=== PATIENT | female | born 1995 | race Caucasian/White ===

== ENCOUNTER 2017-02-02 13:28 | Emergency (ER) | payer BC ==
[2017-02-02 14:26] VITALS: BP 126/65
--- NOTE | 2017-02-02 14:49 | UC ---
Complaint Female HPI - HPI Summary HPI Summary: complaint of sores on her labia that she noticed approx 3 days ago feels painful stinging pain no discharge hurts to wip after she urinates feels fatigued denies abnormal vaginal discharge, dysuria, back pain, abdominal pain uses condom 50% of the time, multiple partners hasn't taken any medication for pain - History Of Current Complaint Chief Complaint: UCSTDScreening Stated Complaint: PERSONAL Time Seen by Provider: 02/02/17 14:43 Hx Obtained From: Patient Hx Last Menstrual Period: 01/25/17 - Allergies/Home Medications Allergies/Adverse Reactions: Allergies Allergy/AdvReac Type Severity Reaction Status Date / Time No Known Allergies Allergy Unverified 02/02/17 14:26 PMH/Surg Hx/FS Hx/Imm Hx Previously Healthy: Yes Endocrine History Of: Denies: Diabetes, Thyroid Disease Cardiovascular History Of: Denies: Cardiac Disorders, Hypertension Respiratory History Of: Denies: COPD, Asthma GI/ History Of: Denies: Ulcer Psychological History Of: Reports: Anxiety - HX OF NO PROBLEMS NOW - Surgical History Surgical History: None - Family History Known Family History: Negative: Cardiac Disease, Hypertension, Diabetes - Social History Occupation: Employed Full-time Alcohol Use: Rare Substance Use Type: None Smoking Status (MU): Light Every Day Tobacco Smoker Amount Used/How Often: 3 per day Cessation Counseling: Patient Advised to Stop - Immunization History Vaccination Up to Date: Yes Review of Systems Constitutional: Fatigue Skin: Other - genital lesions Eyes: Negative ENT: Negative Respiratory: Negative Cardiovascular: Negative Gastrointestinal: Negative Genitourinary: Negative Motor: Negative Neurovascular: Negative Musculoskeletal: Negative Neurological: Negative Psychological: Negative All Other Systems Reviewed And Are Negative: Yes Physical Exam Triage Information Reviewed: Yes Appearance: No Pain Distress, Well-Nourished Vital Signs: Initial Vital Signs Temp 98.5 F 02/02/17 14:21 Pulse 79 02/02/17 14:21 Resp 16 02/02/17 14:21 BP 126/65 02/02/17 14:21 Pulse Ox 100 02/02/17 14:21 Vital Signs Reviewed: Yes Eyes: Positive: Conjunctiva Clear ENT: Positive: Pharynx normal, TMs normal Neck: Positive: No Lymphadenopathy Respiratory: Positive: Lungs clear, Normal breath sounds, No respiratory distress Cardiovascular: Positive: RRR, No Murmur Abdomen Description: Positive: Nontender, No Organomegaly, Soft. Negative: CVA Tenderness (R), CVA Tenderness (L) Bowel Sounds: Positive: Present Musculoskeletal Exam: Normal Neurological Exam: Normal Psychological Exam: Normal Skin Exam: Normal - External genitalia with several erythemaous lesions no exudate- Vaginal vault is without discharge. Cervix is of normal color without lesion. The os is closed. There is no bleeding noted. Uterus is noted to be of normal size and nontender. No cervical motion tenderness is seen. No masses are palpated. The adnexa are without masses or tenderness. Complaint Female Dx - Course Course Of Treatment: exam completed. appears to be genital herpes. will start valtrex for suppression and give lidocaine TD for pain reduction. will do STD testing. discussed using condoms 100 % of the time - Differential Dx/Diagnosis Provider Diagnoses: genital herpes. STD testing Discharge - Discharge Plan Condition: Stable Disposition: HOME Prescriptions: Lidocaine 2% VISCOUS* 1 ml TRANSDERM QID #1 btl ValACYclovir (*) [Valtrex 1 GM(*)] 1 gm PO BID #14 tab Patient Education Materials: Safe Sex (ED), Genital Herpes Simplex (ED) Referrals: No Primary Care Phys,NOPCP [Primary Care Provider] - [facility] [Outside] Additional Instructions: Your blood pressure is pre-hypertensive reading. Please contact your primary care provider within 1 day -4 weeks for further evaluation. Start valtrex as directed , use lidocaine as needed Increase fluids and rest Take acetaminophen or ibuprofen for fever or pain Please review your discharge instructions. If your symptoms do not improve please call your primary care provider or return to urgent care
[2017-02-03 13:46] LABS: Syphilis Index < 0.1 Index
[2017-02-05 23:30] LABS: Herpes Simplex 1&2 IgM IFA Negative (Negative)
[2017-02-06 00:55] LABS: HS/VZ Source GENITAL LESION; Varicella Zoster Result Negative (Negative); Varicella Zoster Source GENITAL LESION
== END 2017-02-02 15:42 | disposition home or self-care (01) ==
LOC: UCEAST 13:28
DX: A60.00 Herpesviral infection of urogenital system, unspecified (principal); Z11.3 Encounter for screening for infections with a predominantly sexual mode of transmission; Z11.4 Encounter for screening for human immunodeficiency virus [HIV]; F17.210 Nicotine dependence, cigarettes, uncomplicated
CPT/HCPCS: 36415; 86592; 86694; 86703; 86803; 87491; 87529; 87591; 87798; 99212; G0463

== ENCOUNTER 2017-12-16 20:40 | Emergency (ER) | payer BC ==
[2017-12-16 21:27] VITALS: BP 124/56
[2017-12-16] MEDS ORDERED: Nitrofurantoin Macrocrystals* 50 MG CAP PO ONE (22:14)
[2017-12-16] MEDS ORDERED: Phenazopyridine TAB* 100 MG PO ONE (22:15)
--- NOTE | 2017-12-16 22:24 | UC ---
Complaint Female HPI - HPI Summary HPI Summary: 22 y/o female presents to the urgent care c/o burning and frequency on urination since yesterday. Pain is 8/10 w/ urination and she saw blood in her urine this morning. Pt has not taking anything to alleviate symptoms. Pt w/ Hx of Herpes. LMP:12/10/2017 w/ regular menstrual cycles. Pt denies lower back pain, pelvic pain, abdominal pain, fever, N/V/D. - History Of Current Complaint Chief Complaint: EDUrogenitalProblems Stated Complaint: BURNING URINATION Time Seen by Provider: 12/16/17 22:02 Hx Obtained From: Patient Hx Last Menstrual Period: 12/10/17 ?: No Onset/Duration: Gradual Onset, Lasting Days - 1 day, Still Present, Worse Since - today Timing: Constant, Lasting Days - 1 day Severity Initially: Mild Severity Currently: Moderate Pain Intensity: 5 Pain Scale Used: 0-10 Numeric Character: Burning Aggravating Factor(s): Urination Alleviating Factor(s): Nothing Associated Signs And Symptoms: Positive: Negative. Negative: Fever, Back Pain, Vaginal Bleeding/Discharge, Vaginal Discharge, Genital Swelling, Genital Blisters - Risk Factors Ectopic Risk Factor: Negative Ovarian Torsion Risk Factor: Negative - Allergies/Home Medications Allergies/Adverse Reactions: Allergies Allergy/AdvReac Type Severity Reaction Status Date / Time No Known Allergies Allergy Verified 12/16/17 21:28 PMH/Surg Hx/FS Hx/Imm Hx Previously Healthy: Yes Other Endocrine History: Herpes II - Surgical History Surgical History: None - Family History Known Family History: Positive: None - Pt denies FMHX Negative: Cardiac Disease, Hypertension, Diabetes - Social History Occupation: Student Lives: With Family Alcohol Use: Rare Substance Use Type: None Smoking Status (MU): Light Every Day Tobacco Smoker Amount Used/How Often: 3 per day - Immunization History Vaccination Up to Date: Yes Review of Systems Constitutional: Negative Skin: Negative Eyes: Negative ENT: Negative Respiratory: Negative Cardiovascular: Negative Gastrointestinal: Negative Genitourinary: Dysuria, Hematuria, Frequency, Urgency Motor: Negative Neurovascular: Negative Musculoskeletal: Negative Neurological: Negative Psychological: Negative Is Patient Immunocompromised?: No All Other Systems Reviewed And Are Negative: Yes Physical Exam Triage Information Reviewed: Yes Vital Signs: Initial Vital Signs Temp 98 F 12/16/17 21:19 Pulse 75 12/16/17 21:19 Resp 16 12/16/17 21:19 BP 124/56 12/16/17 21:19 Pulse Ox 100 12/16/17 21:19 - Additional Comments VITAL SIGNS: Reviewed. GENERAL: Patient is a well developed and nourished female who is sitting comfortable in the examining table. Patient is not in any acute respiratory distress. HEAD AND FACE: No signs of trauma. No ecchymosis, hematomas or skull depressions. No sinus tenderness. EYES: PERRLA, EOMI x 2, No injected conjunctiva, clear watery eyes, no nystagmus. No photophobia. EARS: Hearing grossly intact. Ear canals and tympanic membranes are within normal limits. MOUTH: pharynx with no erythema, no exudates,no palatal petechiae. no B/L tonsillar enlargement Uvula in midline. NECK: Supple, trachea is midline, no lymphadenopathy, no JVD, no carotid bruit, no c-spine tenderness, neck with full ROM. CHEST: Symmetric, no tenderness at palpation LUNGS: Clear to auscultation bilaterally. No wheezing or crackles. CVS: Regular rate and rhythm, S1 and S2 present, no murmurs or gallops appreciated. ABDOMEN: Soft, non-tender. No signs of distention. No rebound no guarding, and no masses palpated. Bowel sounds are normal. BACK:no scoliosis or lesions, non tender to palpation, No B/L CVA tenderness EXTREMITIES: FROM in all major joints, no edema, no cyanosis or clubbing. NEURO: Alert and oriented x 3. No acute neurological deficits. Speech is normal and follows commands. SKIN: Dry and warm Complaint Female Dx - Course Course Of Treatment: 22 y/o female presents to the urgent care c/o burning and frequency on urination since yesterday. Pain is 8/10 w/ urination and she saw blood in her urine this morning. Pt has not taking anything to alleviate symptoms. Pt w/ Hx of Herpes. LMP:12/10/2017 w/ regular menstrual cycles. Pt denies lower back pain, pelvic pain, abdominal pain, fever, N/V/D. Hx obtained. UA UA results: Blood 3+, Leukoesterase 3+. Pt Rx Nitrofurantoin 100mg PO x 7 days. Pyridium 100mg PO TID x 2 days. First dose given at the clinic tonight. Advised to increase fluid intake. Urine sent for culture if any abnormality Pt will be notified for further treatment. Pt advised If symptoms do not improve to return to the urgent care or f/u with PCP. Pt understood and agreed. Left the clinic ambulating. - Differential Dx/Diagnosis Differential Diagnosis/HQI/PQRI: Cervicitis, Pelvic Inflammatory Disease, Renal Colic, Ureteral Stone, Urinary Tract Infection Provider Diagnoses: 1- UTI. 2-Dysuria Discharge - Discharge Plan Condition: Stable Disposition: HOME Prescriptions: Nitrofurantoin Macrocrystals* [Macrodantin*] 100 mg PO BID #13 cap Phenazopyridine TAB* [Pyridium 100 mg TAB*] 100 mg PO TID #5 tab Patient Education Materials: Urinary Tract Infection in Women (ED) Referrals: [facility] [place] [facility]ERR[facility] [Outside] - 3 Days Additional Instructions: 1- Please take Macrobid 100mg PO x 7 days. Pyridium 100 mg PO TID x 2 days to alleviate urinary symptoms. Increase increase fluid intake. drink cranberry juice. 2-Urine sent for culture if any abnormality, you will be notified for further treatment. 3-If symptoms do not improve please return to the urgent care or f/u with her PCP.
--- NOTE | 2017-12-18 18:15 | UC ---
- Progress Note Progress Note: Pt with + E.Coli on Macrobid await sensitivity Bebeto 12/18/2017
== END 2017-12-16 22:29 | disposition home or self-care (01) ==
LOC: UCEAST 20:40
DX: N39.0 Urinary tract infection, site not specified (principal); R30.0 Dysuria; F17.210 Nicotine dependence, cigarettes, uncomplicated
CPT/HCPCS: 81003; 81025; 87077; 87086; 87186; 99211; A9270-GY; G0463

== ENCOUNTER 2019-01-28 10:58 | Emergency (ER) | payer BC ==
[2019-01-28 11:50] VITALS: BP 122/80
--- NOTE | 2019-01-28 12:41 | UC ---
FLU HPI - HPI Summary HPI Summary: 23-year-old female presents with 3-4 day history general malaise, fatigue, body aches, nasal congestion, runny nose, sore throat, and nonproductive cough. Associated with feeling "hot and cold". 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 Denies ear pain, dysphagia, chest pain, shortness of breath, abdominal pain, nausea, vomiting, or diarrhea. - History of Current Complaint Chief Complaint: UCGeneralIllness Stated Complaint: COLD Time Seen by Provider: 01/28/19 12:14 Hx Obtained From: Patient Hx Last Menstrual Period: 12/25/18 Pain Intensity: 7 - Allergy/Home Medications Allergies/Adverse Reactions: Allergies Allergy/AdvReac Type Severity Reaction Status Date / Time No Known Allergies Allergy Verified 01/28/19 11:51 PMH/Surg Hx/FS Hx/Imm Hx Previously Healthy: Yes Psychological History: Depression - Surgical History Surgical History: None - Family History Known Family History: Positive: None - Pt denies FMHX Negative: Cardiac Disease, Hypertension, Diabetes - Social History Occupation: Employed Full-time Lives: With Family Alcohol Use: Rare Substance Use Type: None Smoking Status (MU): Light Every Day Tobacco Smoker Amount Used/How Often: 3 per day - Immunization History Vaccination Up to Date: Yes Review of Systems All Other Systems Reviewed And Are Negative: Yes Constitutional: Positive: Chills, Fatigue. Negative: Fever Skin: Negative: Rash Eyes: Negative: Drainage, Eye Redness ENT: Positive: Sore Throat, Nasal Discharge, Sinus Congestion. Negative: Ear Ache, Sinus Pain/Tenderness Respiratory: Positive: Cough. Negative: Shortness Of Breath Cardiovascular: Negative: Palpitations, Chest Pain Gastrointestinal: Negative: Abdominal Pain, Vomiting, Diarrhea, Nausea Genitourinary: Positive: Negative Musculoskeletal: Positive: Negative Neurological: Positive: Negative Is Patient Immunocompromised?: No Physical Exam - Summary Physical Exam Summary: GENERAL APPEARANCE: Well developed, well nourished, alert and cooperative, and appears to be in no acute distress. EYES: Conjunctiva clear. No drainage. Vision is grossly intact. EARS: External auditory canals and tympanic membranes clear, hearing grossly intact. NOSE: Mild-moderate nasal congestion. No nasal discharge. THROAT: Pharyngeal erythema. No tonsilar inflammation, swelling, exudate, or lesions. Uvula midline. Oral cavity normal. Teeth and gingiva in good general condition. NECK: Neck supple, non-tender without lymphadenopathy. CARDIAC: Normal S1 and S2. No S3, S4 or murmurs. Rhythm is regular. There is no peripheral edema, cyanosis or pallor. Extremities are warm and well perfused. Capillary refill is less than 2 seconds. Peripheral pulses intact. LUNGS: Clear to auscultation without rales, rhonchi, wheezing or diminished breath sounds. Non-productive cough. ABDOMEN: Positive bowel sounds. Soft, nondistended, nontender. No guarding or rebound. No masses or hepatosplenomegally. MUSKULOSKELETAL: ROM intact to all extremities. No joint erythema or tenderness. Normal muscular development. Normal gait. SKIN: Skin normal color, texture and turgor with no lesions or eruptions. Triage Information Reviewed: Yes Vital Signs: Initial Vital Signs Temp 99.3 F 01/28/19 11:48 Pulse 96 01/28/19 11:48 Resp 16 01/28/19 11:48 BP 122/80 01/28/19 11:48 Pulse Ox 100 01/28/19 11:48 Vital Signs Reviewed: Yes Flu Course/Dx - Course Course Of Treatment: 23-year-old female presents with 3-4 day history general malaise, fatigue, body aches, nasal congestion, runny nose, sore throat, and nonproductive cough. Associated with feeling "hot and cold". 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 Denies ear pain, dysphagia, chest pain, shortness of breath, abdominal pain, nausea, vomiting, or diarrhea. Afebrile. Vital signs stable. Exam remarkable for mild to moderate nasal congestion, pharyngeal erythema without tonsillar swelling or exudate, and a nonproductive cough. Patient symptoms are consistent with the flu. Recommending symptomatic treatment including Tessalon Perles one capsule every 8 hours as needed for cough. Anticipatory guidance warning symptoms reviewed with the patient. Verbalizes understanding and agrees with plan of care. - Differential Dx/Diagnosis Differential Diagnosis/HQI/PQRI: Bronchitis, Influenza, Pneumonia, Upper Respiratory Infection Provider Diagnosis: Influenza Discharge - Sign-Out/Discharge Documenting (check all that apply): Patient Departure All imaging exams completed and their final reports reviewed: No Studies - Discharge Plan Condition: Stable Disposition: HOME Prescriptions: Benzonatate CAP* [Tessalon 100 MG CAP*] 100 mg PO TID PRN #30 cap PRN Reason: Cough Patient Education Materials: Influenza (ED) Forms: *Work Release Referrals: No Primary Care Phys,NOPCP [Primary Care Provider] - Additional Instructions: Your history and exam are consistent with with the flu. Get plenty of rest. Drink plenty of fluids to avoid dehydration especially if you are running any fever. Take over the counter acetaminophen (Tylenol) or ibuprofen (Advil, Motrin) according to directions as needed for pain or fever. Take Tessalon Perles 1 cap every 8 hours as needed for cough. Use salt water gargles several times a day if you have a sore throat. You may also use Chloraseptic spray or Cepacol lonzenges according to directions which contain a numbing medication and can provide some temporary relief from your sore throat. Return here of follow up with your primary care provider in 3-5 days if symptoms persist. Seek immediate medical attention in the emergency room if you have fever greater than 100.5 F despite taking acetaminophen or ibuprofen, have chest pain , difficulty breathing, are unable to swallow, or have any worsening of symptoms. - Billing Disposition and Condition Condition: STABLE Disposition: Home
== END 2019-01-28 13:01 | disposition home or self-care (01) ==
LOC: UCEAST 10:58
DX: J11.1 Influenza due to unidentified influenza virus with other respiratory manifestations (principal); F17.210 Nicotine dependence, cigarettes, uncomplicated
CPT/HCPCS: 99212; G0463